=== PATIENT | male | born 1985 | race African-American/Black ===

== ENCOUNTER 2022-12-12 11:50 | Emergency (ER) | payer OTHER, SELFPAY ==
--- NOTE | ~2022-12-12 | CT_ITS ---
EXAMINATION: CT brain wo con DATE: 12/12/2022 14:57 INDICATION: Paresthesias and weakness in the hands bilaterally. Headache. TECHNIQUE: Computed tomography (CT) of the head was performed without intravenous contrast. The mA wa s adjusted according to patient size. Iterative reconstruction technique was employed. The dose-lengt h product was 605.33 mGy-cm. COMPARISON: None FINDINGS: There is no intracranial hemorrhage, acute infarction, or abnormal intracranial mass lesion . The ventricles are normal in size. The orbits are normal. There is mild mucosal thickening in the e thmoid sinuses. The mastoid air cells are normal. IMPRESSION: 1. Normal brain. Reviewed, dictated and finalized at location A. GER [employer]CTION IMPRESSION: 1. Normal brain.
[2022-12-12 12:36] VITALS: BP 144/92; PULSE 80; RESP 16; TEMP 36.8; O2SAT 100
--- NOTE | 2022-12-12 12:38 | ECG_ITS ---
Measurements Intervals [place] Rate: 84 P: 67 AR: 144 QRS: 59 QRSD: 92 T: 41 QT: 356 QTc: 422 Interpretive Statements SINUS RHYTHM POSSIBLE RIGHT VENTRICULAR CONDUCTION DELAY [RSR (QR) IN V1/V2] EARLY REPOLARIZATION [ST ELEVATION WITH NORMALLY INFLECTED T WAVE] NO PREVIOUS ECG AVAILABLE FOR COMPARISON Electronically Signed On 12-13-2022 11:21:24 GR[employer]OLDER by Jayda Davidson M.D.
--- NOTE | 2022-12-12 14:14 | ED.GENADULT ---
HPI - General Adult General Chief complaint: Weakness Stated complaint: left sided lowry/muscle spasms/weakness Time Seen by Provider: 12/12/22 13:55 History of Present Illness HPI narrative: Patient is a 37-year-old male here for evaluation of bilateral hand paresthesias for the past 4 months. Reports his hands feel fatigued and has been dropping items. He states he has had difficulty lifting his son which is abnormal for him. Denies any significant pain in the extremities but does have some paresthesias at nighttime. He was seen in urgent care facility 2 weeks ago for the same with a severe headache, was given headache cocktail with improvement. Discharged with prednisone which did help his weakness. He does not have a primary care doctor. No fevers, chills, IV drug use, back pain, trauma to the head, weakness in the legs or tick bites. Review of Systems Review of Systems: Gen.: Denies fevers or chills Eyes: Denies eye pain or visual change ENT: Denies congestion Respiratory: Denies shortness of breath or cough CV: Denies chest pain or palpitations GI: Denies abdominal pain nausea, emesis or diarrhea denies burning, urgency, frequency or hematuria Musculoskeletal: Reports weakness in the bilateral hands Neuro: Denies numbness, tingling, weakness or focal weakness Skin: Denies rash Except as documented, all other systems reviewed and negative PMFSH Social History Social History Smoking status: Former smoker Smoking end date: 10/30/05 Alcohol intake: current Exam Narrative: APPEARANCE: Well appearing, no pain in distress, well-nourished. Head: Normocephalic and atraumatic. EYES: PERRLA/EOMI, conjunctivae clear NOSE: No nasal drainage EARS: External ear normal in appearance THROAT: Oropharynx is clear. Mucous membranes are moist. NECK: Supple. No adenopathy, no masses. RESPIRATORY: Airway patent, respirations nonlabored. Clear to auscultation bilaterally, no rales, rhonchi, wheezing. CARDIOVASCULAR: Regular rate and rhythm without murmurs, rubs, or gallops. ABDOMINAL: Normoactive bowel sounds. Soft, nontender, nondistended. No rebound tenderness or guarding. MUSCULOSKELETAL: Decreased strength in bilateral hands. Normal strength in lower extremities. Normal range of motion without pain. Phalen's test is positive. NEURO: Normal speech. No focal neurologic deficits. SKIN: Skin is warm and dry. No rashes. PSYCHIATRIC: Normal affect/mood.. Course Vital Signs Vital signs: Vital Signs Temperature 98.2 F 12/12/22 12:36 Pulse Rate 80 12/12/22 12:36 Respiratory Rate 16 12/12/22 12:36 Blood Pressure 144/92 H 12/12/22 12:36 Pulse Oximetry 100 12/12/22 12:36 Temperature 98.2 F 12/12/22 12:36 Pulse Rate 80 12/12/22 12:36 Respiratory Rate 16 12/12/22 12:36 Blood Pressure 144/92 H 12/12/22 12:36 Pulse Oximetry 100 12/12/22 12:36 Medical Decision Making MDM Narrative Medical decision making narrative: 37-year-old male here for evaluation of bilateral hand weakness and intermittent paresthesias for the past 4 months. Patient is nontoxic in appearance and has normal vital signs. He does have some decreased strength in his bilateral hands but has soft compartments, bounding radial pulses, no bony tenderness to palpation, positive phalen's test. No focal deficits. Suspect carpal tunnel versus rheumatologic process. Head CT is normal. Basic labs unremarkable. He does have a slight elevation in his CK to 415, not in rhabdomyolysis range but does raise suspicion for some sort of MSK injury. He is not on statins or other medications that would raise this. Patient is comfortable plan with outpatient follow-up with his PCP, we will send home with a few days of prednisone which should help if this is an autoimmune or inflammatory process, especially given that his pain improved with prednisone in the past. Return precautions were discussed and he voiced understanding. Vital Signs Vital Signs:
[2022-12-12 14:51] LABS: Basophils Percent Auto 0.7 % (0.2-1.2); Eosinophils Absolute Auto 0.1 K/mm3 (0-0.3); Eosinophils Percent Auto 2.3 % (0-4.4); Hematocrit 45.2 % (42.0-52.0); Immature Granulocyte Absolute 0.01 K/mm3 (0.00-0.031); Immature Granulocyte Percent A 0.2 % (0-0.5); Lymphocytes Absolute Auto 1.84 K/mm3 (0.9-3.2); Lymphocytes Percent Auto 41.8 % (18.3-44.2); Mean Corpuscular HGB Conc 33.2 g/dl (32-36); Mean Corpuscular Hemoglobin 29.1 pg (26-34); Mean Corpuscular Volume 87.8 fl (80-100); Mean Platelet Volume 9.2 fl (7.4-10.4); Monocytes Absolute Auto 0.5 K/mm3 (0.1-0.6); Monocytes Percent Auto 11.1 % (2.6-8.5); Neutrophils Absolute Auto 1.9 K/mm3 (1.3-6.7); Neutrophils Percent Auto 43.9 % (45.5-73.1); Platelet Count Result 309 k/mm3 (150-375); Red Blood Count 5.15 M/mm3 (4.6-6.20); Red Cell Distribution Width 13.2 % (11.5-14.5); White Blood Count 4.4 K/mm3 (4.5-10.0)
[2022-12-12 15:46] LABS: Alanine Aminotransferase 32 U/L (6-50); Albumin Level 4.6 g/dL (3.5-5.1); Alkaline Phosphatase 72 U/L (38-126); Anion Gap 5 mmol/L (8-16); Aspartate Amino Transferase 30 U/L (17-59); Bilirubin,Total 0.7 mg/dL (0.2-1.3); Blood Urea Nitrogen 12 mg/dL (9-20); Calcium 9.2 mg/dL (8.4-10.2); Carbon Dioxide 28 mmol/L (22-30); Chloride 105 mmol/L (98-107); Creatine Kinase 415 U/L (55-170); Estimated CRCL calculation 108 ml/min; Estimated Glomerular Filt Rate > 60; Glucose 86 mg/dL (65-110); Magnesium 2.1 mg/dL (1.6-2.3); Potassium 3.9 mmol/L (3.4-5.0); Sodium 138 mmol/L (137-145)
== END 2022-12-12 16:30 | disposition home or self-care (01) ==
PROVIDERS: Emergency Provider Physician Assistant
DX: M25.532 Pain in left wrist (principal); M25.531 Pain in right wrist; Z87.891 Personal history of nicotine dependence; R94.31 Abnormal electrocardiogram [ECG] [EKG]
CPT/HCPCS: 36415; 70450; 80053; 82550; 83735; 85025; 93005; 99284

== ENCOUNTER 2022-12-21 12:28 | Outpatient (RCR) | payer OTHER, SELFPAY ==
--- NOTE | 2022-12-21 13:53 | OTOPDC ---
Assessment and note entered by Cheryle Chavez OTR/Kyle Evaluation Information Assessment Status Evaluation Diagnosis bilateral hand weakness Subjective Information Patient presents to Outpatient OT with bilateral hand weakness which patient reports began May/ June of 2022. Patient reports the weakness began suddenly and without mechanism. Weakness has prevented patient from being able to complete daily tasks such as difficulty with buttons on pants, showering, any gripping/grasping tasks. Patient reports R hand is worst than L hand. Reported Pain Level Pain Score 0,0: Self Report Assessment OT Clinical Summary Jayson is a L hand dominant male who presents to Outpatient OT for sudden onset of symptoms without mechanism including significant bilateral UE weakness. Patient reports hand and arm weakness has impacted ability to work or complete daily task. Patient demonstrates decreased strength bilaterally, R UE is weaker than L UE grossly. 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 Patient demonstrates decreased active ROM of forearm and wrist bilaterally, R worse than L. Patient demonstrates no complaints of numbness/ tingling or peripheral nerve symptoms at this time . Sensation is WNL measured through 2 point discrimination. Patient is not being seen for skilled Occupational Therapy services, based on my clinical evaluation, his symptoms are outside my scope of practice. Educated patient to follow up with referring provider to discuss other treatment options. Thank you for the referral. Plan of Care OT Services Indicated No
== END 2022-12-21 15:26 | disposition home or self-care (01) ==
LOC: ANHGOSHOT 12:28
PROVIDERS: PCP Family Medicine; Visit Provider Family Medicine
DX: M25.641 Stiffness of right hand, not elsewhere classified (principal); M25.642 Stiffness of left hand, not elsewhere classified
CPT/HCPCS: 97110; 97165

== ENCOUNTER 2023-01-05 14:45 | Outpatient (RCR) | payer OTHER, SELFPAY ==
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
--- NOTE | 2023-01-05 16:24 | PCPTNOTE ---
Patient presented to treatment this date stating his CK levels were higher than normal and unable to move his hands and arms. Patient having difficulty with bladder control and headaches. Due to symptoms of concern held on treatment this date and contacted provider to encourage a follow up. Treatments on hold until provider has cleared patient for therapy.
--- NOTE | 2023-01-09 09:10 | PCPTNOTE ---
Spoke with physician's office on 01/06/23 and patient on 01/09/23 about holding therapy for patient to follow up with neurology
--- NOTE | 2023-02-06 13:52 | PCPTNOTE ---
Called to follow up with patient. Stated he was doing better, goes for MRI this week and then sees Dr. Ramirez after that. Will discharge case unless he follows up with therapy after seeing his MD.
--- NOTE | 2023-02-17 14:28 | PTOPDC ---
Assessment and note entered by Lea Arellano DPT Evaluation Information Assessment Status Discharge - Pt Not Present Subjective Information Assessment PT Clinical Summary Patient has not contacted therapy since following up with MD. He will be discharged this date and need a new script to resume therapy in the future. Plan of Care PT Services Indicated No
== END 2023-02-17 14:49 | disposition home or self-care (01) ==
LOC: ANHGOSHPT 14:45
PROVIDERS: PCP Family Medicine; Visit Provider Family Medicine
DX: M25.641 Stiffness of right hand, not elsewhere classified (principal); M25.642 Stiffness of left hand, not elsewhere classified; R25.3 Fasciculation; R29.898 Other symptoms and signs involving the musculoskeletal system
CPT/HCPCS: 97110; 97140; 97162

== ENCOUNTER 2023-07-18 14:03 | Emergency (ER) | payer OTHER, SELFPAY ==
--- NOTE | ~2023-07-18 | XR_ITS ---
EXAMINATION: XR chest 2V DATE: 07/18/2023 14:58 INDICATION: Chronic whole-body weakness TECHNIQUE: PA and lateral views of the chest were obtained. COMPARISON: None FINDINGS: No focal airspace opacities, pulmonary edema, pleural effusion or pneumothorax. Cardiomediastinal elena houette is normal. Hypertrophic changes with osseous bridging between the anterior left first-third r ibs. IMPRESSION: 1. No acute cardiopulmonary disease. Reviewed, dictated and finalized at location A.
[2023-07-18 14:06] VITALS: BP 139/80; PULSE 84; RESP 16; TEMP 36.7; O2SAT 100
--- NOTE | 2023-07-18 14:32 | ECG_ITS ---
Measurements Intervals [place] Rate: 77 P: 67 GA: 175 QRS: 52 QRSD: 93 T: 3 QT: 344 QTc: 389 Interpretive Statements SINUS RHYTHM INCOMPLETE RIGHT BUNDLE BRANCH BLOCK ST ELEVATION IN ANT/HIGH LAT LEADS, PROBABLY EARLY REPOLARIZATION NONSPECIFIC ST & T-WAVE ABNORMALITY- INFERIOR LEADS BORDERLINE ECG COMPARED TO ECG 12/12/2022 12:46:55 ST (T WAVE) DEVIATION NOW PRESENT Electronically Signed On 07-18-2023 14:54:01 CDT by Christian Oliver D.O.
[2023-07-18 14:54] LABS: Basophils Percent Auto 0.7 % (0.2-1.2); Eosinophils Absolute Auto 0.1 K/mm3 (0-0.3); Eosinophils Percent Auto 3.2 % (0-4.4); Hematocrit 46.8 % (42.0-52.0); Hemoglobin 15.6 g/dL (14.0-18.0); Immature Granulocyte Absolute 0.01 K/mm3 (0.00-0.031); Immature Granulocyte Percent A 0.2 % (0-0.5); Lymphocytes Absolute Auto 1.55 K/mm3 (0.9-3.2); Lymphocytes Percent Auto 38.5 % (18.3-44.2); Mean Corpuscular HGB Conc 33.3 g/dl (32-36); Mean Corpuscular Hemoglobin 29.3 pg (26-34); Mean Corpuscular Volume 87.8 fl (80-100); Mean Platelet Volume 8.5 fl (7.4-10.4); Monocytes Absolute Auto 0.4 K/mm3 (0.1-0.6); Monocytes Percent Auto 10.4 % (2.6-8.5); Neutrophils Absolute Auto 1.9 K/mm3 (1.3-6.7); Platelet Count Result 329 k/mm3 (150-375); Red Blood Count 5.33 M/mm3 (4.6-6.20); Red Cell Distribution Width 13.1 % (11.5-14.5)
[2023-07-18 15:05] LABS: Alanine Aminotransferase 34 U/L (6-50); Albumin Level 4.7 g/dL (3.5-5.1); Alkaline Phosphatase 61 U/L (38-126); Anion Gap 8 mmol/L (8-16); Aspartate Amino Transferase 35 U/L (17-59); Bilirubin,Total 0.5 mg/dL (0.2-1.3); Blood Urea Nitrogen 15 mg/dL (9-20); Calcium 9.6 mg/dL (8.4-10.2); Carbon Dioxide 24 mmol/L (22-30); Chloride 105 mmol/L (98-107); Estimated CRCL calculation 136 ml/min; Estimated Glomerular Filt Rate > 60; Glucose 118 mg/dL (65-110); Potassium 3.8 mmol/L (3.4-5.0); Sodium 137 mmol/L (137-145)
[2023-07-18 15:23] LABS: Appearance Urine Clear (Clear); Bilirubin Urine Negative (Negative); Blood Urine Negative (Negative); Color Urine Yellow (Yellow); Glucose Urine UA Negative (Negative); Ketones Urine Negative (Negative); Leukocyte Esterase Ur Negative LEU/UL (Negative); Nitrate Urine Negative (Negative); Protein Urine Negative (Negative); Specific Grav Ur 1.019 (1.001-1.035); Urobilinogen Urine 0.2 mg/dL (<2.0)
[2023-07-18 15:36] LABS: Add Urine Microscopic? NO
--- NOTE | 2023-07-18 19:47 | ED.GENADULT ---
HPI - General Adult General Chief complaint: Weakness Stated complaint: WEAKNESS Time Seen by Provider: 07/18/23 19:44 History of Present Illness HPI narrative: Patient is a 37-year-old male who presents to the emergency department with gradually worsening speech difficulty, upper extremity weakness and gait instability over the past 9 months. He has been seen by rheumatology and neurology at [facility]. He has an MRI and lab work done he states they have ruled out ALS and MS. He was supposed to get a muscle biopsy and it was not scheduled. Pt was on 6 weeks of prednisone and says that his speech worsened during that time. Patient has been evaluated by neurology and rheumatology. It is unclear who he is still following up with. It is somewhat difficult to understand his speech. Per notes he saw rheumatology in December and February. At that time there was no gait abnormalities. He spoke to neurology on the phone in March and speech was understandable. Related Data Home Medications Medication Instructions Recorded Confirmed ergocalciferol (vitamin D2) 1,250 1,250 mcg PO WEEKLY 02/27/23 02/27/23 mcg (50,000 unit) capsule prednisone 10 mg tablet 30 mg PO DAILY 02/27/23 02/27/23 Allergies Allergy/AdvReac Type Severity Reaction Status Date / Time No Known Allergies Allergy Verified 02/27/23 16:07 Review of Systems Review of Systems: Review of systems negative except what is documented in the [facility] Surgical History Surgical History H/O pelvic surgery (~2018) ORIF of pelvic fracture Hx of hand surgery (~2018) ORIF for left hand fracture Family History Family History Sibling Asthma Sibling Diabetes mellitus Thyroid disorder Social History Social History Smoking status: Former smoker Smoking end date: 10/30/05 Alcohol intake: former Substance use: never Substance use type: does not use Lack of Transportation: No Lack of Food: Never True Current Housing: I Have Housing Concerned About Future Housing: No Difficulty Paying Gas/Electric Bills: No Difficulty Paying for Meds: No Currently Unemployed: No Occupation/Education: occupation Additional occupation/education comments: [employer] Gender identity (if verbalized by the patient): Male Sexual Orientation (if Verbalized by the Patient): Straight or Heterosexual Spiritual care concerns: No Exam Narrative: GENERAL: Well-appearing, well-nourished, and in no acute distress. HEAD: Normocephalic, atraumatic. EYES: PERRLA and EOMI. ENT: Nares clear, no rhinorrhea or epistaxis. Mucous membranes moist. NECK: Supple. CHEST: Clear to auscultation. No respiratory distress. HEART: Regular rate and rhythm. ABDOMEN: Soft, nontender, nondistended. EXTREMITIES: Normal range of motion. No edema. SKIN: Warm, dry, no rash. NEURO: No focal deficits. 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 Course Course Emergency Course: Patient presents to the emergency department with a worsening progression of weakness and speech difficulties over the past 9 months. Possibly lost to follow-up and unclear what his next step is. I have consulted [facility]. His neurologist was at [facility]. Per previous Saul notes he saw Dr. Hinds at an arthritis center Vital Signs Vital signs: Vital Signs Temperature 36.7 C 07/18/23 14:06 Pulse Rate 84 07/18/23 14:06 Respiratory Rate 16 07/18/23 14:06 Blood Pressure 139/80 07/18/23 14:06 Pulse Oximetry 100 07/18/23 14:06 Oxygen Delivery Room Air 07/18/23 14:06 Temperature 36.7 C 0
[2023-07-18 20:36] VITALS: PULSE 70
[2023-07-18 20:58] VITALS: BP 156/101; PULSE 80; O2SAT 100
== END 2023-07-18 20:55 | disposition home or self-care (01) ==
LOC: ANHED 20:44
PROVIDERS: Emergency Medicine; Emergency Provider Emergency Medicine; PCP Family Medicine
DX: R53.1 Weakness (principal); F80.9 Developmental disorder of speech and language, unspecified; R26.89 Other abnormalities of gait and mobility; Z87.891 Personal history of nicotine dependence
CPT/HCPCS: 36415; 71046; 80053; 81003; 85025; 93005; 99283

== ENCOUNTER 2023-09-08 12:42 | Outpatient (CLI) | payer OTHER, SELFPAY ==
[2023-09-08 13:51] LABS: Basophils Percent Auto 0.7 % (0.2-1.2); Eosinophils Absolute Auto 0.1 K/mm3 (0-0.3); Eosinophils Percent Auto 2.5 % (0-4.4); Hematocrit 48.5 % (42.0-52.0); Hemoglobin 15.3 g/dL (14.0-18.0); Immature Granulocyte Absolute 0.01 K/mm3 (0.00-0.031); Immature Granulocyte Percent A 0.2 % (0-0.5); Lymphocytes Absolute Auto 2.21 K/mm3 (0.9-3.2); Lymphocytes Percent Auto 49.9 % (18.3-44.2); Mean Corpuscular HGB Conc 31.5 g/dl (32-36); Mean Corpuscular Hemoglobin 28.3 pg (26-34); Mean Corpuscular Volume 89.6 fl (80-100); Mean Platelet Volume 10.3 fl (7.4-10.4); Monocytes Absolute Auto 0.4 K/mm3 (0.1-0.6); Monocytes Percent Auto 9.7 % (2.6-8.5); Neutrophils Absolute Auto 1.6 K/mm3 (1.3-6.7); Platelet Count Result 289 k/mm3 (150-375); Red Blood Count 5.41 M/mm3 (4.6-6.20); Red Cell Distribution Width 13.4 % (11.5-14.5); White Blood Count 4.4 K/mm3 (4.5-10.0)
[2023-09-08 15:26] LABS: Erythrocyte Sedimentation Rate 5 mm/hr (0-20)
[2023-09-08 18:58] LABS: Alanine Aminotransferase 36 U/L (6-50); Albumin Level 4.9 g/dL (3.5-5.1); Alkaline Phosphatase 72 U/L (38-126); Anion Gap 11 mmol/L (8-16); Aspartate Amino Transferase 60 U/L (17-59); Bilirubin,Total 0.6 mg/dL (0.2-1.3); Blood Urea Nitrogen 14 mg/dL (9-20); CRP < 0.5 mg/dL (<1.0); Calcium 10.1 mg/dL (8.4-10.2); Carbon Dioxide 26 mmol/L (22-30); Chloride 104 mmol/L (98-107); Creatine Kinase 455 U/L (55-170); Estimated Glomerular Filt Rate > 60; Glucose 89 mg/dL (65-110); Potassium 3.8 mmol/L (3.4-5.0); Sodium 141 mmol/L (137-145)
[2023-09-08 19:02] LABS: Vitamin D 25 Hydroxy 37.2 ng/mL
== END 2023-09-08 12:43 | disposition home or self-care (01) ==
LOC: ANHGOSHLAB 12:44
PROVIDERS: PCP Family Medicine; Visit Provider Family Medicine
DX: R25.3 Fasciculation (principal); R29.898 Other symptoms and signs involving the musculoskeletal system; E53.8 Deficiency of other specified B group vitamins; E55.9 Vitamin D deficiency, unspecified
CPT/HCPCS: 36415; 80053; 82306; 82550; 82607; 84443; 85025; 85652; 86140

== ENCOUNTER 2023-10-10 10:30 | Outpatient (RCR) | payer OTHER, SELFPAY ==
--- NOTE | 2023-07-19 15:49 | OTOPEVAL1 ---
Assessment and note entered by CASSANDRA Dunn/Kyle, CHT Evaluation Information Assessment Status Evaluation Diagnosis stiffness of right and left hand Subjective Information Patient reports onset of gross upper body weakness Oct 2022. He reports he woke up one morning and was unable to even pull the covers off of him. He has been seeing a neurologist, going through a variety of tests. He reports they have ruled out ALS and MS. 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 Patient reporting diffuse UE weakness and being unable to open a jar and having severe difficulty using his hands to lift and carry items, using a utensil to eat or cut food, and lift/manipulate small items. He reports using a pen and being able to write his name today is progress. Reported Pain Level Pain Score 0: Self Report Assessment OT Clinical Summary Patient referred to outpatient OT with a decline in UE functioning due to gross weakness. Skilled OT indicated for HEP instruction and progression, strengthening, functional therapeutic activities, and adaptive ADL techniques to facilitate optimal functional use of B UEs. Plan of Care Interventions Therapeutic Exercise,Neuro Re-education, Therapeutic Activities,Self-Care/Home Management OT Services Indicated Yes Treatment Frequency and 1-2x/week for 5 weeks Duration These treatments will address the objective and functional deficits as defined above. The patient will be advanced safely and appropriately in order for the patient to progress towards his/her prior level of function. Additional exercises will be introduced and as well as a comprehensive home exercise program upon discharge, if needed, ?to ensure carryover of functional gains achieved in the clinic. This treatment plan has been reviewed and agreement upon by the patient.
--- NOTE | 2023-07-19 15:49 | OPREHPOC ---
Outpatient Therapy Plan of Care This is a Multidisciplinary Plan of Care that may contain components documented by all disciplines (PT, OT, and ST.) OT Problem 1 OT Problem #1 Knowledge Deficit OT Goal 1 Goal 1. Patient to be independent with instructed materials. Target Visit 10 OT Problem 2 OT Problem #2 Impaired Coordination OT Goal 1 Goal 1. Be able to complete the 9-hole peg test with the right hand. 2. Be able to complete the 9-hole peg test with the left hand. Target Visit 10 OT Problem 3 OT Problem #3 Impaired Strength OT Goal 1 Goal 1. Increase functional strength of bilateral shoulders as demonstrated by being able to touch both hands to the back of his head. 2. Be able to complete bilateral shoulder strengthening with a red theraband. 3. Increase bilateral wrist strengths as demonstrated by being able to complete 10 reps of wrist flexion/extension against gravity with a 2 lb. free weight. 4. Increase (R) director of marketing analytics strength to 40 lbs. 5. Increase (L) director of marketing analytics strength to 35 lb.s Target Visit 10
--- NOTE | 2023-08-25 15:50 | OTOPPROG ---
Assessment and note entered by Raman Mancuso, CASSANDRA/Kyle, CHT Progress Update 08/25/23 Assessment Status Progress Diagnosis stiffness of right and left hand Subjective Information Patient has been working with OT x6 visits. He reports he notices an improvement in his strength and endurance. Progress noted with being able to use a utensil to feed himself and cut food. 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 Patient reports improved abilities with showering - able to reach and wash his face. Difficulties washing underarms. Dressing is getting easier, but he still has to don shirts in supine, but does report this is getting easier. OT has been focusing on gross upper body flexibility and strengthening. Progress noted in gross strength of the shoulders, elbows, forearms, and wrists. Improved flexibility noted in the shoulders. Overall improved functional activity tolerance with timed tests. He continues to have severely impaired functional strength and coordination. Assessment OT Clinical Summary Patient referred to outpatient OT with a decline in UE functioning due to gross weakness. Re- assessment completed today after 5 weeks of therapy. He is making progress with functional flexibility and strength. He continues to have severely impaired functional strength and coordination, however. Overall he is progressing with UE function for ADLs, being able to now wash his face and use utensils to feed himself. Continued skilled OT indicated for HEP instruction and progression, strengthening, functional therapeutic activities, and adaptive ADL techniques to facilitate optimal functional use of B UEs. Plan of Care Interventions Therapeutic Exercise,Neuro Re-education, Therapeutic Activities,Self-Care/Home Management OT Services Indicated Yes Treatment Frequency and 1-2x/week for 5 weeks Duration These treatments will address the objective and functional deficits as defined above. The patient will be advanced safely and appropriately in order for the patient to progress towards his/her prior level of function. Additional exercises will be introduced and as well as a comprehensive home exercise program upon discharge, if needed, ?to ensure carryover of functional gains achieved in the clinic. This treatment plan lowry
--- NOTE | 2023-09-29 13:55 | OTOPEVAL1 ---
Assessment and note entered by CASSANDRA Dunn/Kyle, CHT Progress Report 09/29/23 Assessment Status Progress Diagnosis stiffness of right and left hand Subjective Information Patient has been working with OT x13 visits. He reports he notices an improvement in his strength and endurance. He is noticing improved muscle tone in his back, shoulders, and arms. He reports his hands are easier to use. He is now able to dress himself independently, now able to don his own socks. Reports getting upper body dressed is easier. Improvements with picking up items as well , noting improved ability to open his hand and improved ability to tax technician. He is now able to carry a plate into the kitchen. OT has been focusing on gross upper body flexibility and strengthening. Progress noted in gross strength and flexibility of the shoulders, wrists, and hands. He was able to complete the 9- hole peg test today with both hands. Last month he was only able to place 2 pegs with the right hand and 6 pegs with the left. Overall improved functional activity tolerance with timed tests. He continues to have severely impaired functional strength and coordination. Reported Pain Level Pain Score 0: Self Report Assessment OT Clinical Summary Patient referred to outpatient OT with a decline in UE functioning due to gross weakness. Re- assessment completed today. Patient is making progress with improved flexibility and improved functional strength, which has carried over into improved functional UE use during ADLs. He is very motivated and compliant with all materials. He continues to demonstrate functional deficits due to residual weakness and will benefit from continued skilled services focused on HEP instruction and progression, strengthening, functional therapeutic activities, and adaptive ADL techniques to facilitate optimal functional use of B UEs. Plan of Care Interventions Therapeutic Exercise,Neuro Re-education, Therapeutic Activities,Self-Care/Home Management OT Services Indicated Yes Treatment Frequency and 1-2x/week for 5 weeks Duration These treatments will address the objective and functional deficits as defined above. The patient will be advanced safely and appropriately in order for the patient to progress towards his/her prior level of function. Additional exer
--- NOTE | 2023-10-12 11:37 | PCOTNOTE ---
This treatment is being continued on visit number [id number]. Please see documentation on both accounts to view progress. Completed interventions, outcomes, and problems have been marked as Inactive to facilitate the copying of the Care plan routine for recurring accounts.
== END 2023-10-12 10:36 | disposition home or self-care (01) ==
LOC: ANHOT 10:30
PROVIDERS: PCP Family Medicine; Visit Provider Family Medicine
DX: M25.641 Stiffness of right hand, not elsewhere classified (principal); M25.642 Stiffness of left hand, not elsewhere classified
CPT/HCPCS: 97110; 97140; 97166; 97530

== ENCOUNTER 2023-11-14 10:30 | Outpatient (RCR) | payer OTHER, SELFPAY ==
--- NOTE | 2023-10-12 11:37 | PCOTNOTE ---
The treatment documented on this account is a continuation of the treatment documented on visit number [id number]. Please see documentation on both accounts to view progress. The Plan of Care has been transitioned and updated within the new V#. I have addressed and agree with the discipline specific Problems, Interventions, and Goals for the current certification period. Completed interventions, outcomes, and problems have been marked as Inactive to facilitate the copying of the Care plan routine for recurring accounts.
--- NOTE | 2023-10-20 13:25 | PCOTNOTE ---
Patient called & cancelled scheduled appointment this date.
--- NOTE | 2023-10-25 12:33 | OTOPDC ---
Assessment and note entered by Raman Mancuso, CASSANDRA/Kyle, CHT Discharge Summary 10/26/23 Diagnosis stiffness of right and left hand Subjective Information Patient has been working with OT x18 visits. He reports he notices an improvement in his ability to reach, grasp, and chicken picker items. He is feeling stronger and more flexible. He reports he is finally considering seeing a neurologist. He states he is being referred to [facility] and is waiting for a call. OT has been focusing on gross upper body flexibility and strengthening. He has been compliant with his home program. Measurements today demonstrate a plateau in progress with functional ROM and strength of the UEs. Assessment OT Clinical Summary Patient referred to outpatient OT with a decline in UE functioning due to gross weakness. Re- assessment completed today. Unfortunately there has been a plateau with functional strength, ROM, and function at this time. Discussed the results of the tests today with the patient and continued to strongly recommend a neurological evaluation. He verbalizes his understanding. Discharging today with patient independent with HEP. Plan of Care OT Services Indicated No
--- NOTE | 2023-10-25 13:04 | PTOPEVAL1 ---
Assessment and note entered by Carlos Alberto [facility] Evaluation Information Assessment Status Evaluation Diagnosis muscle weakness Onset 10/30/22 Subjective Information Pt. reports that he initially began to develop weakness in his hands in October. He states that 2 days after developing the weakness. He states that his primary referred him to the rheumotologist and was given prednisone for 2 months. He states that he felt that he was getting worse with the use of the prednisone. He states that a lot of his problems began after being prescribed prednisone. He does recall 3 year of drinking 1 gallon of whiskey a week prior to his onset as well. He reports that he was then referred to the neurologist and was given an MRI of the brain and c-spine without signficant findings. He reports that he went to see a neurosurgeon and was told that he did not require neck surgery. 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 He states that he had to stop work when he realized he could not lead technologist in cytogenetics a hammer with his hands . He states that he has been referred to [facility] by his primary care doctor, and is waiting an appointment. He reports that he continues to drive and recalls no recent falls. He states that his walking has become more difficult He recalls that he was able to do stairs without his hands in June, but states that he requires a handrail. He reports that his goal is to be able to navigate steps without an handrail. Reported Pain Level Pain Score 0: Self Report Pain Score 3: Self Report Assessment PT Clinical Summary Pt. is a 37 year old male who enters the clinic due to generalized weakness. He presents with abnormal reflexes on this date, impaired balance, impaired gait, impaired l.e. strength and funcitonal decline. Pt. demonstrates a pattern of distal weakness being more apparent than proximal weakness. Encouraged the pt. to remain persistent in regards to meeting with a specialist and his presentation has similarities to a progressive neurological disorder. At this time continued skilled PT is indicated in order to address objective deficits to maximize safety and allow for improved overall function. Plan of Care Interventions Gait Tr
--- NOTE | 2023-10-25 13:05 | OPREHPOC ---
Outpatient Therapy Plan of Care This is a Multidisciplinary Plan of Care that may contain components documented by all disciplines (PT, OT, and ST.) PT Problem 1 PT Problem #1 Knowledge Deficit PT Goal 1 Goal Pt. will be independent with a HEP addressing l.e. strength and flexibility. Target Visit 2 PT Problem 2 PT Problem #2 Impaired Gait PT Goal 1 Goal Pt. will increase distance with the 6 minute walk test to 800' or greater indicating improve gait effiiency. Target Visit 10 PT Problem 3 PT Problem #3 Impaired Balance PT Goal 1 Goal Pt. will improve his tinetti score to 20 or greater indicating improved safety. Target Visit 10 PT Problem 4 PT Problem #4 Impaired Strength PT Goal 1 Goal Pt. will present with 4/5 strength at the bilateral ankle joints in all planes of movement. Target Visit 10 PT Problem 5 PT Problem #5 Impaired Flexibility PT Goal 1 Goal Pt. will improve 90/90 test to 20 degrees from full knee extension on both right and left. Target Visit 10 OT Problem 1 OT Problem #1 Knowledge Deficit OT Goal 1 Goal 1. Patient to be independent with instructed materials. ---OT POC UPDATE 08/25/23--- 1. Met ---OT POC UPDATE 09/29/23--- 1. Met ---OT D/C 10/26/23--- 1. Met Target Visit 23 OT Problem 2 OT Problem #2 Impaired Coordination OT Goal 1 Goal 1. Be able to complete the 9-hole peg test with the right hand. 2. Be able to complete the 9-hole peg test with the left hand. ---OT POC UPDATE 08/25/23--- 1. Progressing, continue 2. Progressing, continue ---OT POC UPDATE 09/29/23--- 1. Met - Upgrade goal: Patient to be able to complete the 9-hole peg test with the right hand in 5 min or less.
--- NOTE | 2023-11-02 09:40 | PCPTNOTE ---
Pt cancelled appt today because he could not make it in.
--- NOTE | 2023-11-07 10:50 | PCPTNOTE ---
Pt cancelled and did not give a reason.
--- NOTE | 2023-11-09 11:00 | PCPTNOTE ---
Pt NS visit today.
--- NOTE | 2023-11-14 11:07 | PCPTNOTE ---
Pt no showed again today and will be discharged.
--- NOTE | 2023-11-16 10:40 | PCPTNOTE ---
Pt no showed appt today. Discussed with PT to DC pt.
--- NOTE | 2023-11-16 12:57 | PTOPDC ---
Assessment and note entered by Carlos Alberto [facility] Discharge Information Assessment Status Discharge - Pt Not Present Diagnosis muscle weakness Onset 10/30/22 Assessment PT Clinical Summary Mr. Trejo attended his initial evaluation for PT 10/25/23. He has failed to return to the clinic since his initial evaluation. We have attempted to contact the pt. via telephone, but he has failed to return calls. He will be discharged from our care at this time. Plan of Care PT Services Indicated D/C from PT due to lack of compliance with POC.
== END 2023-11-16 14:16 | disposition home or self-care (01) ==
LOC: ANHPT 10:30
PROVIDERS: PCP Family Medicine; Visit Provider Family Medicine
DX: M25.641 Stiffness of right hand, not elsewhere classified (principal); M25.642 Stiffness of left hand, not elsewhere classified; M62.81 Muscle weakness (generalized)
CPT/HCPCS: 97110; 97140; 97162; 99199